=== PATIENT | male | born 1970 ===

== ENCOUNTER 2024-04-27 07:30 | Inpatient (IN) | payer OTHER ==
[~2024-04-27] VITALS: Ht 182.9 cm; Wt 119.7 kg
[2024-04-27] MEDS ORDERED: GLUMETZA1000 MG PO (08:50)
[2024-04-27] MEDS ORDERED: LIPITOR40 M1 PO (08:50)
[2024-04-27] MEDS ORDERED: LISINOPRIL20 MG PO (08:50)
[2024-04-27] MEDS ORDERED: NORVASC5 MG PO (08:51)
[2024-04-27] MEDS ORDERED: GLIPIZIDE XL5 MG PO (08:51)
[2024-04-27 09:14] LABS: HEMATOCRIT 42.4 % (39.0-48.0); HEMOGLOBIN 14.3 g/dL (13-16.00); MEAN CORPUSCULAR HEMOGLOBIN 31.4 pg (27.00-32.0); MEAN CORPUSCULAR HGB CONC 33.8 g/dl (32.0-36.0); PLATELET COUNT 340 K/uL (150-450); RED BLOOD COUNT 4.56 M/uL (4.00-6.00)
[2024-04-27 09:33] LABS: URINE APPEARANCE Clear; URINE BILIRRUBIN Negative (NEGATIVE); URINE BLOOD Negative; URINE COLOR Yellow; URINE KETONE Trace (NEGATIVE); URINE LEUKOCYTE Negative; URINE NITRATE Negative; URINE PROTEIN Trace (NEGATIVE); URINE UROBILINOGEN 0.2 E.U./dl
[2024-04-27 09:34] LABS: URINE BACTERIA 42.8 uL (0.0-1933); URINE EPITHELIAL CELLS 24.8 uL (0.0-38.8); URINE RBC 13.1 uL (0.0-20.8); URINE WBC 7.1 uL (0.0-23.2)
[2024-04-27 09:35] LABS: INR 1.05; PARTIAL THROMBOPLASTIN TIME 29.6 SECONDS (22.0-34.0); PROTHROMBIN TIME 11.4 SECONDS (9.0-11.5)
[2024-04-27 09:37] LABS: URINE CAST 0.15 uL (0.0-1.40); URINE GLUCOSE >=1000 MG/DL (NEGATIVE)
[2024-04-27 10:44] LABS: CALCIUM 9.3 mg/dL (8.5-10.1); CREATININE SERUM 0.98 mg/dL (0.70-1.30); GFR 79.41; POTASSIUM 4.74 mEq/L (3.5-5.1)
[2024-04-27 11:53] LABS: RH POSITIVE
[2024-04-27] MEDS ORDERED: HUMALOG100 UNIT/2 SQ (12:15)
[2024-05-02] MEDS ORDERED: FAMOTIDINE/PF 20 MG/2 ML VIAL IV ONE (09:15)
[2024-05-02] MEDS ORDERED: BUPIVACAINE HCL 30 ML VIAL IJ ONE (09:15)
[2024-05-02] MEDS ORDERED: SURGIFLO APPLICATOR 1 EACH APPL TOP ONE (09:15)
[2024-05-02] MEDS ORDERED: ENOXAPARIN SODIUM 40 MG/0.4 ML SYRINGE SUBCUTANEO ONE (09:15)
[2024-05-02] MEDS ORDERED: HEMOSTATIC MATRIX 1 KIT KIT TOP ONE (09:15)
[2024-05-02] MEDS ORDERED: CEFAZOLIN SODIUM 1,000 MG in 0.9 % SODIUM CHLORIDE 50 ML IV ONE (09:15)
[2024-05-02] MEDS ORDERED: SUGAMMADEX SODIUM 200 MG/2 ML VIAL IV ONE (12:30)
[2024-05-02] MEDS ORDERED: RINGERS SOLUTION,LACTATED 1,000 ML IV SCH (12:45)
[2024-05-02] MEDS ORDERED: ONDANSETRON HCL 2 MG/ML VIAL IV PRN (12:45)
[2024-05-02] MEDS ORDERED: OxyCODONE HCL/APAP UD (PERCOCET) PO PRN (12:45)
[2024-05-02] MEDS ORDERED: DEXTROSE 50 % IN WATER 0.5 G/ML DISP.SYRIN IV PRN (13:00)
[2024-05-02] MEDS ORDERED: INSULIN LISPRO 1,000 UNIT/10 ML UNITS SUBCUTANEO PRN (13:00)
[2024-05-02] MEDS ORDERED: MORPHINE SULFATE 4 MG/ML VIAL IV ONE ×2 (13:00→13:30)
[2024-05-02] MEDS ORDERED: KETOROLAC TROMETHAMINE 30 MG VIAL IV SCH (17:00)
[2024-05-02] MEDS ORDERED: GABAPENTIN 300 MG CAPSULE PO SCH (17:00)
[2024-05-02] MEDS ORDERED: POLYETHYLENE GLYCOL 3350 17 GM BLIST.PACK PO SCH (17:00)
[2024-05-02] MEDS ORDERED: CEFAZOLIN SODIUM 1,000 MG VIAL IV SCH (18:00)
[2024-05-02 19:33] VITALS: BP 111/60; O2SAT 98
[2024-05-02] MEDS ORDERED: FAMOTIDINE/PF 20 MG/2 ML VIAL IV SCH (21:00)
[2024-05-03 00:54] VITALS: BP 131/77; O2SAT 100
[2024-05-03 06:17] LABS: HEMATOCRIT 37.8 % (39.0-48.0); HEMOGLOBIN 12.7 g/dL (13-16.00); MEAN CORPUSCULAR HEMOGLOBIN 31.3 pg (27.00-32.0); MEAN CORPUSCULAR HGB CONC 33.6 g/dl (32.0-36.0); PLATELET COUNT 279 K/uL (150-450); RED BLOOD COUNT 4.07 M/uL (4.00-6.00); RED CELL DISTRIBUTION WIDTH 14.3 % (11.5-14.5)
[2024-05-03 06:55] LABS: ALBUMIN 2.8 gm/dL (3.4-5.0); CALCIUM 8.3 mg/dL (8.5-10.1); CREATININE SERUM 0.97 mg/dL (0.70-1.30); GFR 80.35; POTASSIUM 4.55 mEq/L (3.5-5.1)
[2024-05-03] MEDS ORDERED: GLIPIZIDE 5 MG PO SCH (09:00)
[2024-05-03] MEDS ORDERED: AMLODIPINE BESYLATE 5 MG TABLET PO SCH (09:00)
[2024-05-03] MEDS ORDERED: LISINOPRIL 20 MG TABLET PO SCH (09:00)
[2024-05-03 09:49] VITALS: BP 128/72; O2SAT 96
[2024-05-03] MEDS ORDERED: ENOXAPARIN SODIUM 40 MG/0.4 ML SYRINGE SUBCUTANEO SCH (17:00)
== END 2024-05-03 13:35 | disposition home or self-care (01) | DRG 708 ==
LOC: SURG 05-02 05:11 → O/R 05-02 05:11 → SURH 05-02 07:00 → SURG 05-02 14:35
PROVIDERS: ADMIT Urology; ATTEND Urology
PROC: 8E0W4CZ Robotic Assisted Procedure of Trunk Region, Percutaneous Endoscopic Approach (ICD-10-PCS; 2024-05-02)
PROC: 0VT04ZZ Resection of Prostate, Percutaneous Endoscopic Approach (ICD-10-PCS; principal; 2024-05-02 07:00)
DX: C61 Malignant neoplasm of prostate (principal); Z20.822 Contact with and (suspected) exposure to COVID-19
CPT/HCPCS: 55866; S2900

== ENCOUNTER 2024-05-30 08:48 | Outpatient (CLI) | payer OTHER ==
[~2024-05-30 08:48] MED LIST: GLIPIZIDE XL5 MG PO; GLUMETZA1000 MG PO; HUMALOG100 UNIT/2 SQ; LIPITOR40 M1 PO; LISINOPRIL20 MG PO; NORVASC5 MG PO
== END 2024-05-30 08:57 | disposition home or self-care (01) ==
LOC: TOM 08:48
PROVIDERS: ATTEND Urology
DX: C61 Malignant neoplasm of prostate (principal)
CPT/HCPCS: 72194; Q9965

== ENCOUNTER → 2024-06-11 08:42 | Outpatient (CLI) | payer OTHER | END | disposition home or self-care (01) | LOC: TOM 08:42 | PROVIDERS: ATTEND Urology | DX: C61 Malignant neoplasm of prostate (principal) ==